=== PATIENT | female | born 1990 | race Caucasian/White ===

== ENCOUNTER → 2019-03-02 | Outpatient (CLI) | payer OTHER | LOC: RAD 16:03 | DX: M41.84 Other forms of scoliosis, thoracic region (principal); M41.86 Other forms of scoliosis, lumbar region; M43.8X6 Other specified deforming dorsopathies, lumbar region ==

== ENCOUNTER 2019-04-27 19:19 | Emergency (ER) | payer OTHER ==
[~2019-04-27] VITALS: Ht 160 cm; Wt 57.1 kg
[~2019-04-27 19:19] MED LIST: LEXAPRO20 MG PO; TOPAMAX 25 MG T25 M1 PO
[2019-04-27 21:01] LABS: ABSOLUTE NEUTROPHILS 6.4 thou/uL (1.4-8.2); BASOPHILS 0.6 % (0.0-2.0); EOSINOPHILS 1.4 % (0.0-3.0); HEMATOCRIT 47.7 % (37.0-47.0); HEMOGLOBIN 16.6 gm/dL (12.0-15.0); LYMPHOCYTES 26.4 % (24.0-44.0); MCH 32.4 pg (26.0-34.0); MCHC 34.7 g/dL (28.0-37.0); MCV 93.4 fL (80.0-100.0); MONOCYTES 8.5 % (1.0-8.0); PLATELET COUNT 315 thou/uL (150-400); POLYS 63.1 % (36.0-66.0); RBC 5.11 mil/uL (4.20-5.00); RDW 12.9 % (10.5-14.5); WBC 10.2 thou/uL (4.0-11.0)
[2019-04-27 21:06] LABS: ANION GAP 8 mmol/L (7-16); BUN 18 mg/dL (7-18); CALCIUM 9.6 mg/dL (8.5-10.1); CHLORIDE 102 mmol/L (98-107); CO2 24 mmol/L (21-32); CREATININE 0.9 mg/dL (0.6-1.0); GLUCOSE 101 mg/dL (74-106); POTASSIUM 3.7 mmol/L (3.5-5.1); SODIUM 134 mmol/L (136-145)
[2019-04-27 21:14] LABS: TROPONIN-I <0.06 ng/mL (<0.06)
[2019-04-27 22:39] VITALS: BP 111/66
--- NOTE | 2019-04-28 08:21 | EKG ---
[facility] [place] [address] ELECTROCARDIOGRAM REPORT Name: GILBERTO FUNEZ LALO Room #: DEP [facility]#: [id number] Admission: 04/27/19 Attend Phys: Discharge: 04/27/19 Date of : [birth year] Report #: [id number] THIS REPORT FOR: cc: Alycia Frias MD, Nora P. MD [place] MD [facility] ~ THIS REPORT FOR: //name// [facility] ED Test Date: 2019-04-27 Test Time: 19:26:20 Pat Name: GILBERTO FUNEZ Department: Room: Gender: F Quantitative Analyst Developer: HUBER : 1990 Requested By: Aurelia Ayala Order Number: [id number] MD: [place] Mén[place] Measurements Intervals [place] Rate: 110 P: 80 NC: 128 QRS: 76 QRSD: 73 T: 15 QT: 315 QTc: 427 Interpretive Statements Sinus tachycardia Right atrial enlargement Borderline T abnormalities, anterior leads No previous ECG available for comparison Electronically Signed On 04-28-2019 8:20:35 CDT by [place] Méndez [email or web address] <ELECTRONICALLY SIGNED> By: [place] Méndez MD, FACC 04/28/19819 25 25 [place] Méndez MD, [facility] /EPI
== END 2019-04-27 22:53 | disposition home or self-care (01) ==
LOC: ER 19:19
PROVIDERS: Nurse Practitioner
DX: R20.2 Paresthesia of skin (principal); T42.6X5A Adverse effect of other antiepileptic and sedative-hypnotic drugs, initial encounter; R07.89 Other chest pain; R10.31 Right lower quadrant pain; R11.2 Nausea with vomiting, unspecified; R19.7 Diarrhea, unspecified; R20.0 Anesthesia of skin; R06.02 Shortness of breath; Z79.899 Other long term (current) drug therapy; Z91.010 Allergy to peanuts; Z88.1 Allergy status to other antibiotic agents; Y92.89 Other specified places as the place of occurrence of the external cause

== ENCOUNTER → 2019-05-02 | Outpatient (CLI) | payer OTHER ==
--- NOTE | 2019-05-02 11:28 | 2DMMODE ---
[facility] [place] [place] [facility] [place] [address] 2 D/M-MODE ECHOCARDIOGRAM Name: GILBERTO FUNEZ LALO Room #: REG [facility] [place]#: [id number] Admission: 05/02/19 Attend Phys: Alycia Frias MD Discharge: Date of : [birth year] Report #: [id number] THIS REPORT FOR: cc: Alycia Frias MD, Nora P. MD Lammoglia, Francisco J. MD ~ APPROVED REPORT Study performed: 05/02/2019 10:26:24 EXAM: Comprehensive 2D, Doppler, and color-flow Echocardiogram Patient Location: Out-Patient Status: routine BSA: 1.56 HR: 82 bpm BP: 122/83 mmHg Rhythm: NSR Other Information Study Quality: Adequate/implants Indications Syncope and collapse, seizure. Echo Enhancing Agent Indication: Rule out Shunt Agent(s) / Amount(s) Used: Agitated Saline 12 cc Comments: Bubble study x 2 2D Dimensions RVDd: 28.37 mm IVSd: 7.10 (7-11mm) LVOT Diam: 19.50 (18-24mm) LVDd: 40.95 mm PWd: 7.10 (7-11mm) Ascending Ao: 25.23 (22-36mm) LVDs: 29.84 (25-40mm) Aortic Root: 22.74 mm Volumes Left Atrial Volume (Systole) Single Plane 4CH: 28.90 mL Single Plane 2CH: 25.83 mL LA ESV Index: 19.00 mL/m2 Aortic Valve [facility] [place] [address] [place] [address] 2 D/M-MODE ECHOCARDIOGRAM Name: GILBERTO FUNEZ [facility]: [facility] [id number] Admission: 05/02/19 Attend Phys: Alycia Frias MD Discharge: Date of : 89 Report #: [id number] AoV Peak Huan.: 1.28 m/s AO Peak Gr.: 6.51 mmHg LVOT Max P.31 mmHg LVOT Max V: 1.04 m/s DANIELLA Vmax: 2.43 cm2 Mitral Valve E/A Ratio: 2.0 MV Decel. Time: 163.50 ms MV E Max Huan.: 0.87 m/s MV A Huan.: 0.43 m/s MV PHT: 47.42 ms IVRT: 62.28 ms Pulmonary Valve PV Peak Huan.: 1.03 m/s PV Peak Gr.: 4.27 mmHg Pulmonary Vein P Vein S: 0.50 m/s P Vein D: 0.56 m/s P Vein S/D Ratio: 0.89 Tricuspid Valve TR Peak Huan.: 2.02 m/s RAP Estimate: 5.00 mmHg TR Peak Gr.: 16.28 mmHg PA Pressure: 21.00 mmHg Left Ventricle The left ventricle is normal size. There is normal LV segmental wall motion. There is normal left ventricular wall thickness. The left ventricular systolic function is normal. LVEF is 55-60%. The left ventricular diastolic function is normal. Right Ventricle The right ventricle is normal size. The right ventricular systolic function is normal. Atria The left atrium size is normal. No shunting noted with contrast bubble injection. The right atrium size is normal. Aortic Valve The aortic valve is normal in structure. No aortic regurgitation is present. There is no aortic valvular stenosis. Mitral Valve The mitral valve is normal in structure. There is no mitral valve [facility] [place] [place] [address] [place] [address] 2 D/M-MODE ECHOCARDIOGRAM Name: GILBERTO FUNEZ LALO Room #: REG [facility]#: [id number] Admission: 05/02/19 Attend Phys: Alycia Frias MD Discharge: Date of : 89 Report #: [id number] regurgitation noted. No evidence of mitral valve stenosis. Tricuspid Valve The tricuspid valve is normal in structure. Mild tricuspid regurgitation. Estimated PAP is 20-25mmHg. Pulmonic Valve The pulmonary valve is normal in structure. Trace pulmonic regurgitation. Great Vessels The aortic root is normal in size. The ascending aorta is normal in size. IVC is normal in size and collapses >50% with inspiration. Pericardium There is no pericardial effusion. <Conclusion> The left ventricle is normal size. LVEF is 55-60%. The aortic valve is normal in structure. The mitral valve is normal in structure. The tricuspid valve is normal in structure. Mild tricuspid regurgitation. Estimated PAP is 20-25mmHg. The pulmonary valve is normal in structure. Trace pulmonic regurgitation. There is no pericardial effusion. No shunting noted with contrast bubble injection. <ELECTRONICALLY SIGNED> By: Jules Cullen MD 05/02/19 1127 [id number] Jules Cullen MD /INF
== END ==
LOC: EDSTATUS 10:07 → PT 10:09 → EDSTATUS 15:24 → PT 15:27 → EDSTATUS 15:33 → CV 15:34 → CAT 15:34
DX: I36.1 Nonrheumatic tricuspid (valve) insufficiency (principal)

== ENCOUNTER → 2019-05-03 | Outpatient (CLI) | payer OTHER | LOC: ULTRA 15:03 | DX: I82.90 Acute embolism and thrombosis of unspecified vein (principal) ==

== ENCOUNTER → 2019-07-06 | Outpatient (CLI) | payer OTHER | LOC: LABMALL 08:17 | DX: L70.0 Acne vulgaris (principal); Z79.899 Other long term (current) drug therapy ==

== ENCOUNTER → 2019-08-03 | Outpatient (CLI) | payer OTHER ==
[2019-08-03 08:50] LABS: ABSOLUTE NEUTROPHILS 2.6 thou/uL (1.4-8.2); BASOPHILS 1.1 % (0.0-2.0); EOSINOPHILS 2.3 % (0.0-3.0); HEMATOCRIT 42.7 % (37.0-47.0); HEMOGLOBIN 14.7 gm/dL (12.0-15.0); LYMPHOCYTES 38.4 % (24.0-44.0); MCH 31.7 pg (26.0-34.0); MCHC 34.5 g/dL (28.0-37.0); MCV 91.7 fL (80.0-100.0); MONOCYTES 9.7 % (1.0-8.0); PLATELET COUNT 285 thou/uL (150-400); POLYS 48.5 % (36.0-66.0); RBC 4.65 mil/uL (4.20-5.00); RDW 12.1 % (10.5-14.5); WBC 5.5 thou/uL (4.0-11.0)
[2019-08-03 09:20] LABS: SGOT 21 U/L (15-37); SGPT 20 U/L (30-65)
[2019-08-03 09:31] LABS: TRIGLYCERIDE 236 mg/dL (<150)
== END ==
LOC: LAB 08:05
PROVIDERS: ATTEND Family Medicine
DX: L70.0 Acne vulgaris (principal); Z79.899 Other long term (current) drug therapy

== ENCOUNTER → 2019-09-01 | Outpatient (CLI) | payer OTHER ==
[2019-09-01 15:11] LABS: SGOT 20 U/L (15-37); SGPT 19 U/L (30-65); TRIGLYCERIDE 230 mg/dL (<150)
== END ==
LOC: LAB 14:04
DX: L70.0 Acne vulgaris (principal); Z79.899 Other long term (current) drug therapy

== ENCOUNTER 2019-09-28 18:12 | Emergency (ER) | payer OTHER ==
[~2019-09-28] VITALS: Ht 160 cm; Wt 59.0 kg
[2019-09-28] MEDS ORDERED: PREDNISONE 20 M20 MG PO (21:01)
[2019-09-28 21:10] VITALS: BP 122/74
== END 2019-09-28 21:14 | disposition home or self-care (01) ==
LOC: ER 18:12
DX: T78.1XXA Other adverse food reactions, not elsewhere classified, initial encounter (principal); R06.02 Shortness of breath; R51 Headache; R05 Cough; F32.9 Major depressive disorder, single episode, unspecified; Z91.010 Allergy to peanuts; Z88.1 Allergy status to other antibiotic agents; X58.XXXA Exposure to other specified factors, initial encounter

== ENCOUNTER → 2019-11-23 | Outpatient (CLI) | payer OTHER ==
[~2019-11-23] MED LIST changes: +PREDNISONE 20 M20 MG PO
[2019-11-23 08:53] LABS: ABSOLUTE NEUTROPHILS 2.6 thou/uL (1.4-8.2); BASOPHILS 1.5 % (0.0-2.0); EOSINOPHILS 3.2 % (0.0-3.0); HEMATOCRIT 40.6 % (37.0-47.0); HEMOGLOBIN 14.2 gm/dL (12.0-15.0); LYMPHOCYTES 34.5 % (24.0-44.0); MCH 32.1 pg (26.0-34.0); MCV 91.6 fL (80.0-100.0); MONOCYTES 9.1 % (1.0-8.0); PLATELET COUNT 314 thou/uL (150-400); POLYS 51.7 % (36.0-66.0); RBC 4.43 mil/uL (4.20-5.00); RDW 12.3 % (10.5-14.5); WBC 4.9 thou/uL (4.0-11.0)
[2019-11-23 09:16] LABS: SGOT 21 U/L (15-37); SGPT 25 U/L (30-65); TRIGLYCERIDE 211 mg/dL (<150)
== END ==
LOC: LAB 08:17
DX: L70.0 Acne vulgaris (principal); Z79.899 Other long term (current) drug therapy

== ENCOUNTER → 2019-12-19 | Outpatient (CLI) | payer OTHER ==
[~2019-12-19] MED LIST changes: +PEPCID20 MG PO; +PREDNISONE 20 M20 M1 PO; +PROAIR HFA8.5 GM INH
== END ==
LOC: MRI 11-30 14:50
DX: M75.52 Bursitis of left shoulder (principal)